=== PATIENT | female | born 1990 | race Two or more races ===

== ENCOUNTER 2022-06-06 14:01 | Inpatient (IN) | payer OTHER ==
[~2022-06-06] VITALS: Ht 160 cm; Wt 74.8 kg
--- NOTE | 2022-06-06 15:11 | NUR ---
PATIENT IS RECIEVED SAYING THAT SHE FELT A STRONG LEFT QUADRANT PELVIC PAIN EARLIER TODAY AND SAYS THE PAIN STILL PERSISTS.
--- NOTE | 2022-06-06 16:16 | NUR ---
LAB SAMPLES ARE TAKEN ACCORDINGLY AND MEDICATIONS ARE GIVEN ACCORDING TO DOCTOR'S ORDERS.
== END 2022-06-08 22:22 | disposition home or self-care (01) | DRG 330 ==
LOC: ER 14:01 → MEDJ 22:19
PROVIDERS: ADMIT Internal Medicine; ATTEND Internal Medicine
PROC: BW21ZZZ Computerized Tomography (CT Scan) of Abdomen and Pelvis (ICD-10-PCS; principal; 2022-06-06)
PROC: 0DTJ4ZZ Resection of Appendix, Percutaneous Endoscopic Approach (ICD-10-PCS; 2022-06-07)
PROC: 0DQH4ZZ Repair Cecum, Percutaneous Endoscopic Approach (ICD-10-PCS; 2022-06-07)
DX: K35.891 Other acute appendicitis without perforation, with gangrene (principal); K91.72 Accidental puncture and laceration of a digestive system organ or structure during other procedure; Z20.822 Contact with and (suspected) exposure to COVID-19; D72.828 Other elevated white blood cell count